=== PATIENT | female | born 1945 | race Caucasian/White ===

== ENCOUNTER 2020-11-09 20:38 | Emergency (ER) | payer MEDICARE, OTHER ==
[2020-11-09 20:55] VITALS: BP 127/84
--- NOTE | 2020-11-09 21:09 | ED Physician Documentation ---
PD HPI LOWER EXT INJURY - Stated complaint Stated Complaint: R HIP PX - Chief complaint Chief Complaint: Trauma Ext - History obtained from History obtained from: Patient - History of Present Illness PD HPI LOW EXT INJURY LOCATION: Right, Hip Type of injury: Fall Where injury occurred: Street (sidewalk) Timing - onset: How many hours ago (2) Timing - duration: Hours (2) Timing - details: Abrupt onset Pain level now: 5 Improved by: Rest Worsened by: Moving, Palpating Associated symptoms: Swelling. No: Weakness, Numbness, Tingling Contributing factors: No: Anticoagulated, Prior ortho surgery, Prosthetic joint, Work related Similar symptoms before: Has not had sx before Recently seen: Not recently seen - Additional information Additional information: patient tripped and fell approximately 2 hours [employer] on sidewalk; the sun was low in the [place] and as she stepped over curb, the sun briefly impaired her vision and she did not see that the pavement was lower than she expected, causing her to lose her balance and fall onto her right side. She denies head injury, denies TDOD. She c/o right hip pain and swelling but is able to weight-bear. Does not take any blood thinners. Review of Systems Musculoskeletal: reports: Joint pain, Joint swelling, Pain with weight bearing (but able to fully weight-bear) Neurologic: denies: Numbness, Headache, Head injury, LOC PD PAST MEDICAL HISTORY - Past Medical History Past Medical History: No - Present Medications Home Medications: Ambulatory Orders Medication Instructions Recorded Confirmed HYDROcod/ACETAM 5/325 [Harriman 5/325] 1 - 2 tablet PO Q6H PRN #14 tablet 11/09/20 - Allergies Allergies/Adverse Reactions: Allergies Allergy/AdvReac Type Severity Reaction Status Date / Time oxycodone [From OxyContin] Allergy Itching Verified 11/09/20 20:41 - Living Situation Living Arrangement: reports: At home PD ED PE NORMAL - Vitals Vital signs reviewed: Yes - General General: Alert and oriented X 3, No acute distress, Well developed/nourished - Abdomen Abdomen: Soft, Non tender - Extremities Extremities: Normal ROM s pain - Neuro Neuro: No motor deficit, No sensory deficit (RLE NVI) PD ED PE EXPANDED - Extremities OBUBACAR LE visual: 1 - bruising (large, discrete hematoma with echymosis and mild moderate tenderness (tenderness is mostly of soft tissue, with minor component of TTP of adjacent proximal femur). no abrasion nor laceration), tenderness Results - Vitals Vitals: Vital Signs - 24 hr 11/09/20 20:41 Temperature 36.5 C Heart Rate 87 Respiratory 16 Rate Blood Pressure 127/84 H O2 Saturation 98 Oxygen O2 Source Room air - Rads (name of study) right hip xrays Radiology: Prelim report reviewed, See rad report PD MEDICAL DECISION MAKING - ED course Complexity details: reviewed results, re-evaluated patient, considered differential, d/w patient ED course: no acute findings on plain-film xray of right hip. she has good ROM right hip. there is a large hematoma noted on exam, and this should reabsorb without needing specific intervention. SAVANA wrap placed to provide counter-pressure, and I encouraged patient to rest and avoid NSAIDs, as they can potentiate bleeding. She is given vicodin take-home with rx for same for short-term pain control Departure - Departure Disposition: 01 Home, Self Care Clinical Impression: Hematoma of right hip Qualifiers: Encounter type: initial encounter Qualified Code(s): S70.01XA - Contusion of right hip, initial encounter Condition: Good Instructions: ED Hematoma Prescriptions: HYDROcod/ACETAM 5/325 [Harriman 5/325] 1 - 2 tablet PO Q6H PRN #14 tablet PRN Reason: Pain Comments: Follow up this week with your primary care provider as scheduled Discharge Date/Time: 11/09/20 23:13
--- NOTE | 2020-11-09 21:52 | XRAY Report ---
PROCEDURE: Hip w/Pelvis 2-3V RT INDICATIONS: fall, tenderness, large hematoma TECHNIQUE: AP pelvis with lateral view(s) of the right hip(s). COMPARISON: None. FINDINGS: Bones: No fractures or dislocations. Pelvic ring appears intact. No suspicious bony lesions. Mild right hip joint osteophytic changes are seen. No evidence of avascular necrosis of femoral head. Smal l calcification adjacent to greater tuberosity of right hip suggestive of old avulsion injuries versu s calcific tendinitis. Soft tissues: Asymmetric lateral right hip soft tissue swelling is seen. The visualized bowel gas pa ttern is normal. No other suspicious soft tissue calcifications. IMPRESSION: No acute right hip fracture or dislocation. Mild right hip joint osteoarthritis. Suggesti on of old avulsion injury versus calcific tendinitis involving greater trochanter of right hip. Later al right hip soft tissue swelling likely represent soft tissue hematoma. Reviewed by: Rj Jones MD on 11/09/2020 9:50 PM PDT Approved by: Rj Jones MD on 11/09/2020 9:50 PM PDT Station ID: [id number]
[2020-11-09] MEDS ORDERED: HYDROcod/ACET 5/325 Prepack 4 PO STA (22:41)
== END 2020-11-09 23:13 | disposition home or self-care (01) ==
LOC: ED 20:38
DX: S70.01XA Contusion of right hip, initial encounter (principal); W10.1XXA Fall (on)(from) sidewalk curb, initial encounter; Y93.01 Activity, walking, marching and hiking; Y92.480 Sidewalk as the place of occurrence of the external cause
CPT/HCPCS: 99283